=== PATIENT | male | born 1950 | race Caucasian/White ===

== ENCOUNTER → 2017-06-15 | Outpatient (CLI) | payer OTHER, BC ==
[~2017-06-15] MED LIST: ASPEC325 PO; CLB200 PO; LEVOTHYROXINE; LISI-526 PO; LRT5 PO; MULT-506 PO; OXYSR10 PO; PRLSR20 PO; SOLODYN
[2017-06-15 12:12] LABS: BASO % 0.3 %; BASO ABS # 0.02 K/uL (0-0.2); COMPLETE YES; EOS % 0.7 %; HEMATOCRIT 44.8 % (42-52); IG% 0.2 %; LYMPH % 25.9 %; LYMPH ABS # 1.55 K/uL (1.2-3.4); MEAN CELL VOLUME 86.3 fL (80-100); MEAN CORPUSCULAR HEMOGLOBIN 30.3 pg (25-34); MEAN PLATELET VOLUME 10.5 fL (7.4-10.4); MONO % 8.8 %; NEUT % 64.1 %; PLATELET COUNT 192 K/uL (130-400); RED BLOOD COUNT 5.19 M/uL (4.7-6.1); WHITE BLOOD COUNT 5.99 K/uL (4.8-10.8)
== END | disposition home or self-care (01) ==
LOC: C.LAB 10:40
PROVIDERS: ATTEND Orthopaedic Surgery
DX: Z96.652 Presence of left artificial knee joint (principal)

== ENCOUNTER → 2017-07-08 | Outpatient (CLI) | payer OTHER, BC | END | disposition home or self-care (01) | LOC: C.CPL 14:46 | PROVIDERS: ATTEND Orthopaedic Surgery Sports Medicine | DX: M23.92 Unspecified internal derangement of left knee (principal) ==

== ENCOUNTER 2017-10-05 06:17 | Inpatient (IN) | payer OTHER, BC ==
[2017-09-06 14:48] VITALS: BMI 28.0
--- NOTE | 2017-09-06 15:24 | PAT Medication Instructions ---
Service Date Sep 06, 2017. Current Home Medication List Amlodipine (Norvasc), 5 MG PO QAM Aspirin (Aspirin Ec), 81 MG PO QDD Clindamycin Phosphate (Topical (Cleocin-T), 1 APPLN TOP UD PRN for skin care Clobetasol Propionate (Clobetasol Propionate), Unknown Dose TOP UD PRN for skin care Doxycycline (Monohydrate) (Doxycycline), 1 CAP PO BID Levothyroxine Sodium (Synthroid), 112 MCG PO QAM Lisinopril (Lisinopril), 1 TAB PO QAM Lorazepam (Ativan), 0.5 MG PO UD PRN for rn Metronidazole (Topical) (Metrogel), 1 % TOP UD PRN for rosacia Multivitamin (Multivitamin), 1 TAB PO QDD Omeprazole (Prilosec), 20 MG PO QDD Pimecrolimus (Elidel), Unknown Dose TOP UD PRN for rosacia Sildenafil Citrate (Viagra), 20 MG PO UD Triamcinolone Acetonide (Topic (Triamcinolone Acet 0.025%), 1 APPLN TOP UD PRN for inside ear as needed - sorenes Medication Instructions For Your Scheduled Surgery - Hold the following medications 24 hours prior to surgery: Clindamycin Phosphate (Topical (Cleocin-T), 1 APPLN TOP UD PRN for skin care Clobetasol Propionate (Clobetasol Propionate), Unknown Dose TOP UD PRN for skin care Metronidazole (Topical) (Metrogel), 1 % TOP UD PRN for rosacia Triamcinolone Acetonide (Topic (Triamcinolone Acet 0.025%), 1 APPLN TOP UD PRN for inside ear as needed - sorenes Pimecrolimus (Elidel), Unknown Dose TOP UD PRN for rosacia - Hold the following medications the morning of surgery: Lisinopril (Lisinopril), 1 TAB PO QAM Sildenafil Citrate (Viagra), 20 MG PO UD - Take the following medications the morning of surgery with a sip of water OTHERWISE NOTHING TO EAT OR DRINK AFTER MIDNIGHT: Amlodipine (Norvasc), 5 MG PO QAM Levothyroxine Sodium (Synthroid), 112 MCG PO QAM Lorazepam (Ativan), 0.5 MG PO UD PRN Doxycycline (Monohydrate) (Doxycycline), 1 CAP PO BID - Take the following medications as scheduled the night before surgery: Aspirin (Aspirin Ec), 81 MG PO QDD Multivitamin (Multivitamin), 1 TAB PO QDD Omeprazole (Prilosec), 20 MG PO QDD Lorazepam (Ativan), 0.5 MG PO UD PRN Doxycycline (Monohydrate) (Doxycycline), 1 CAP PO BID If you have any questions please call us at [phone] or [phone] or [phone]
--- NOTE | 2017-09-06 15:50 | DIAGNOSTIC IMAGING REPORT ---
CHEST 2 VIEWS ROUTINE CLINICAL HISTORY: Preoperative chest COMPARISON STUDY: 06/08/2011 FINDINGS: The cardiac and mediastinal contours are normal. There is no evidence of focal pulmonary consolidation. There is no evidence of failure. No pleural effusions are visualized.[There is a slightly suboptimal inspiration with bronchovascular crowding at the lung bases. IMPRESSION: No active disease in the chest. Electronically signed by: Miguel A Ortega M.D. 09/06/2017 3:49 PM Dictated Date/Time: 09/06/2017 3:48 PM
[2017-09-06 16:00] LABS: BASO % 0.3 %; BASO ABS # 0.02 K/uL (0-0.2); EOS % 1.3 %; EOS ABS # 0.09 K/uL (0-0.5); HEMATOCRIT 43.1 % (42-52); HEMOGLOBIN 15.1 g/dL (14.0-18.0); IG# 0.01 K/uL (0.00-0.02); LYMPH % 31.5 %; LYMPH ABS # 2.14 K/uL (1.2-3.4); MEAN CELL VOLUME 86.5 fL (80-100); MEAN CORPUSCULAR HEMOGLOBIN 30.3 pg (25-34); MEAN PLATELET VOLUME 9.9 fL (7.4-10.4); MONO % 7.1 %; MONO ABS # 0.48 K/uL (0.11-0.59); NEUT % 59.7 %; NEUT ABS # 4.05 K/uL (1.4-6.5); PLATELET COUNT 216 K/uL (130-400); RED CELL DISTRIBUTION WIDTH CV 13.6 % (11.5-14.5); RED CELL DISTRIBUTION WIDTH SD 42.5 fL (36.4-46.3); WHITE BLOOD COUNT 6.79 K/uL (4.8-10.8)
[2017-09-06 16:12] LABS: PTT PATIENT 25.2 SECONDS (21.0-31.0)
[2017-09-06 16:48] LABS: ALBUMIN 3.7 gm/dl (3.4-5.0); BLOOD UREA NITROGEN 23 mg/dl (7-18); CALCIUM 8.3 mg/dl (8.5-10.1); CARBON DIOXIDE 26 mmol/L (21-32); CREATININE 0.77 mg/dl (0.60-1.40); GLUCOSE 103 mg/dl (70-99); POTASSIUM 3.9 mmol/L (3.5-5.1); SODIUM 140 mmol/L (136-145)
[2017-09-07 05:56] LABS: HEMOGLOBIN A1C 5.5 % (4.5-5.6)
--- NOTE | 2017-10-04 18:33 | HISTORY & PHYSICAL EXAMINATION ---
DATE OF ADMISSION: 10/05/2017 CHIEF COMPLAINT: Chronic left knee pain. HISTORY OF PRESENT ILLNESS: This is a 67-year-old male patient of Dr. Valerio who underwent a partial total knee replacement in November of 2011. Since then, he has had progressively worsening chronic knee pain for the past 1-1/2 years. Diagnostic studies have shown a patellar loosening. The patient wishes to proceed with a left knee partial knee replacement converted to a total knee arthroplasty. PAST MEDICAL HISTORY: Hypertension, hypothyroidism, acid reflux, basal cell carcinoma on the nose. SOCIAL HISTORY: Nonsmoker, nondrinker. PAST SURGICAL HISTORY: Partial knee replacement, both knees. FAMILY HISTORY: Noncontributory. REVIEW OF SYSTEMS: The patient complains of chronic left knee pain, otherwise denies any shortness of breath, chest pain, nausea, vomiting or any other joint complaints. MEDICATIONS: Omeprazole 20 mg daily, levothyroxine 112 mcg daily, lisinopril 40 mg daily, amlodipine 5 mg daily, doxycycline monohydrate 100 mg b.i.d., sildenafil 20 mg daily, aspirin 81 mg b.i.d., Ativan 0.5 mg as needed, Centrum Silver daily, Percocet as needed. ALLERGIES: No known drug allergies. PHYSICAL EXAMINATION: GENERAL: Well-developed, well-nourished 67-year-old male in no acute distress. He is alert and oriented x3 and pleasant. HEENT: Normocephalic, atraumatic. Extraocular motions are intact. Pupils are equal and reactive to light. HEART: Regular rate and rhythm, no murmurs appreciated. LUNGS: Clear. ABDOMEN: Soft and nontender, bowel sounds are present. EXTREMITIES: Left knee reveals normal incision and scar on the left knee. He has a limited range of motion of 0-120 degrees. He has a neutral alignment. He has mild swelling. He has 5/5 strength. NEUROLOGIC: Neurovascularly he is intact in his left lower extremity. 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 He has a history of hypertension, hypothyroidism and acid reflux. PLAN: The patient was advised of his diagnosis. Indications, risks, benefits, and postop course have all been reviewed. The patient wishes to proceed with a left knee partial knee replacement to conversion of a total knee replacement. Necessary consent forms, preoperative testing and clearances will be obtained.
[2017-10-05] VITALS (7 sets, daily range): BP systolic 134–158; BP diastolic 76–91; PULSE 75–88; TEMP 36.4–36.7; O2SAT 96–98; Ht 172.7 cm; Wt 83.8 kg
[~2017-10-05] VITALS: Ht 172.7 cm; Wt 83.8 kg
[~2017-10-05 06:17] MED LIST changes: +ACETAMINOPHEN 500 MG TAB PO SCH; +AMLO-110 PO; -ASPEC325 PO; +ASPI81TA28 PO; +CEFAZOLIN 2000MG IV PUSH 15 ML IV SCH; -CLB200 PO; +CLBPO15 TOP; +CLIN1LOT TOP; +CeleBREX 200 MG CAP PO SCH; +DEXAMETHASONE 4 MG TAB PO SCH; +DOXY-300 PO; +ELDCR/30 TOP; +FAMOTIDINE 20 MG TAB PO SCH; +GABAPENTIN 300 MG CAP PO SCH; +LACTATED RINGER'S 1000ML 1,000 ML IV SCH; +LACTATED RINGER'S 1000ML 500 ML IV SCH; +LEVO112T2 PO; -LEVOTHYROXINE; -LISI-526 PO; +LORA-741 PO; -LRT5 PO; +LSN40 PO; +METOCLOPRAMIDE HCL 10 MG TAB PO SCH; +METR0.7527 TOP; -OXYSR10 PO; +ROPIVACAINE 5MG/ML 30 ML 150 MG, BUPIVACAINE 0.5% MPF INJ 30 ML, EpINEphrine HCL INJ 0.... INFIL SCH; +SILD1TAB11 PO; -SOLODYN; +TRMO2580 TOP; +VANCOMYCIN IV 1,250 MG in SODIUM CHLORIDE 0.9% 250ML 250 ML IV SCH
[2017-10-05] MEDS ORDERED: BUPIVACAINE 0.25% 30 ML VIAL ONE (06:34)
[2017-10-05] MEDS ORDERED: BUPIVACAINE 0.5 % 5 MG/1 ML PF 10ML VIAL ONE (06:34)
--- NOTE | 2017-10-05 07:11 | History & Physical Bridge Note ---
H&P Re-Evaluation Bridge Note: I have examined the patient, reviewed the History & Physical and in the interval since the performance of the History & Physical I have noted the following changes of clinical significance: No changes noted
[2017-10-05] MEDS ORDERED: ORTHO JOINT ANESTHETIC ONE (07:15)
[2017-10-05] MEDS ORDERED: BACITRACIN 50000 UNIT VIAL ONE (07:16)
[2017-10-05] MEDS ORDERED: POVIDONE-IODINE OP SOLN 30 ML BTL ONE (07:16)
[2017-10-05] MEDS ORDERED: MIDAZOLAM HCL 1 MG/ML 2ML VIAL ONE (07:49)
[2017-10-05] MEDS ORDERED: LIDOCAINE HCL 2% 2 ML VIAL (20MG/ML) ONE (09:06)
[2017-10-05] MEDS ORDERED: PROPOFOL IV EMULSION 10 MG/ML 20 ML VIAL IV ONE (09:06)
[2017-10-05] MEDS ORDERED: HYDROmorphone INJ 2 MG/ML SYR/VIAL IV PRN (09:15)
[2017-10-05] MEDS ORDERED: PHENYLEPHRINE 100MCG/ML 5ML SYR IV PRN (09:15)
[2017-10-05] MEDS ORDERED: ONDANSETRON INJ 2 MG/ML 2 ML VIAL IV PRN ×2 (09:15→11:45)
[2017-10-05] MEDS ORDERED: KETOROLAC TROMETHAMINE 15 MG/ML VIAL IV. PRN (09:15)
[2017-10-05] MEDS ORDERED: EpHEDrine SULFATE INJ 50 MG/ML AMP IV PRN (09:15)
[2017-10-05] MEDS ORDERED: ATROPINE SULFATE 0.1 MG/ML 5ML SYR IV PRN (09:15)
[2017-10-05] MEDS ORDERED: KETAMINE HCL INJ 50 MG/ML 10 ML VIAL ONE (09:33)
[2017-10-05] MEDS ORDERED: SODIUM CHLORIDE 0.9% INJ 10 ML VIAL ONE (09:45)
--- NOTE | 2017-10-05 11:24 | [facility] Post Operative Brief Note ---
Immediate Operative Summary Operative Date Oct 05, 2017. Pre-Operative Diagnosis Left knee loosening patellar component status post left bicompartmental knee arthroplasty,s/p knee arthroscopy and debridement removal loose component Post-Operative Diagnosis Same as preop Procedure(s) Performed Left Partial Knee Replacement rewvision to a Left Total Knee Replacement Surgeon Dr. Valerio Rn Maternal Child Surgeon(s) Fran Quiles PA-C Estimated Blood Loss 10ml Findings Consistent with Post-Op Diagnosis Specimens Culture #1 Stat Culture Left Knee Synovial Fluid: gram stain, aerobic/anaerobic, culture and sensitivity sent at 0928 Frozen: #1 Left Knee Soft Tissue Synovium sent at 0958 A. Left Knee Explants B. Left knee bone and tissue Drains 2 hemovac Anesthesia Type Spinal MAC Complication(s) none Disposition Disposition: Recovery Room / PACU
[2017-10-05] MEDS ORDERED: CEFAZOLIN IV 2,000 MG in DEXTROSE 5% 50ML 50 ML IV SCH (11:45)
[2017-10-05] MEDS ORDERED: TAMSULOSIN HCL 0.4 MG CAP PO PRN (11:45)
[2017-10-05] MEDS ORDERED: MAGNESIUM HYDROXIDE SUSP 30 ML UDC PO PRN (11:45)
[2017-10-05] MEDS ORDERED: TRAMADOL HCL 50 MG TAB PO PRN (11:45)
[2017-10-05] MEDS ORDERED: ALUMINUM/MAGNESIUM/SIMETH (MAALOX MAX) 30 ML UDC PO PRN (11:45)
[2017-10-05] MEDS ORDERED: MoRPHine SULFATE 2 MG/ML CARP IV PRN (11:45)
[2017-10-05] MEDS ORDERED: LORAZEPAM INJ 0.5 MG in SYRINGE 0.25 ML IV PRN (12:00)
--- NOTE | 2017-10-05 12:07 | DIAGNOSTIC IMAGING REPORT ---
L KNEE 1 OR 2 VIEWS ROUTINE CLINICAL HISTORY: Left knee degenerative joint disease. Arthroplasty. COMPARISON: None FINDINGS: Alignment of the total left knee arthroplasty is anatomic. There is no fracture or unexpected radiopaque foreign body. Drains and skin shruthi are present. IMPRESSION: Expected findings following total left knee arthroplasty. Electronically signed by: Edwin Verdin M.D. 10/05/2017 12:05 PM Dictated Date/Time: 10/05/2017 12:05 PM
--- NOTE | 2017-10-05 12:27 | Anesthesiology Progress Note ---
Anesthesia Post Op Note Date & Time Oct 05, 2017 at 12:27 Vital Signs Pain Intensity: 0 Vital Signs Past 12 Hours Date Time Temp Pulse Resp B/P (MAP) Pulse Ox O2 Delivery O2 Flow Rate FiO2 10/05/17 12:20 37 75 16 137/73 96 Nasal Cannula 2 10/05/17 12:10 78 16 142/75 96 Nasal Cannula 2 10/05/17 12:00 80 16 135/82 97 Nasal Cannula 2 10/05/17 11:50 75 16 132/82 97 Oxymask 10 10/05/17 11:40 36.5 78 16 129/76 97 Oxymask 10 10/05/17 06:55 36.7 75 18 153/88 97 Room Air Notes Mental Status: alert / awake / arousable, participated in evaluation Pt Amnestic to Procedure: Yes Nausea / Vomiting: adequately controlled Pain: adequately controlled Airway Patency, RR, SpO2: stable & adequate BP & HR: stable & adequate Hydration State: stable & adequate Anesthetic Complications: no major complications apparent
[2017-10-05] MEDS: TRANEXAMIC ACID INJ 1,000 MG x 2 Bags IV SCH ×4 (13:54→13:55)
[2017-10-05] MEDS: D5W AND 1/2NSS + 20MEQ KCL 1,000 ML IV SCH ×2 (13:56→23:48)
[2017-10-05] MEDS: ACETAMINOPHEN 500 MG TAB PO SCH ×2 (13:57→21:22)
--- NOTE | 2017-10-05 15:22 | Medical Consult ---
Consultation Date of Consultation: Oct 05, 2017. Attending Physician: Chicho Valerio M.D. Reason for Consultation: medical co care History of Present Illness 67-year-old man with past medical history of hypothyroidism and hypertension. Patient had partial left knee replacement in November 2011. Started having progressive pain and diagnostic study showed patellar loosening. Patient failed outpatient conservative management and presented for a conversion of partial knee to a total knee arthroplasty Procedure went uneventful and we were consulted for medical co care Social History Smoking Status: Former Smoker Allergies Coded Allergies: No Known Allergies (Unverified , 10/05/17) Current Inpatient Medications Current Inpatient Medications Medications (Trade) Dose Ordered Sig/New Route Start Time Stop Time Status Last Admin Dose Admin Lactated Ringer's 1,000 ml @ 15 mls/hr Q24H IV 10/05/17 06:00 10/06/17 05:59 Cefazolin Sodium 15 ml @ 2.5 mls/min PREOP IV 10/05/17 06:00 10/05/17 18:00 Acetaminophen (Tylenol Tab) 1,000 mg PREOP PO 10/05/17 06:00 10/05/17 18:00 10/05/17 07:19 1,000 MG Celecoxib (CeleBREX CAP) 200 mg PREOP PO 10/05/17 06:00 10/05/17 18:00 10/05/17 07:18 200 MG Dexamethasone (Decadron Tab) 8 mg PREOP PO 10/05/17 06:00 10/05/17 18:00 10/05/17 07:18 8 MG Famotidine (Pepcid Tab) 20 mg PREOP PO 10/05/17 06:00 10/05/17 18:00 10/05/17 07:18 20 MG Gabapentin (Neurontin Cap) 300 mg PREOP PO 10/05/17 06:00 10/05/17 18:00 10/05/17 07:18 300 MG Metoclopramide HCl (Reglan Tab) 10 mg PREOP PO 10/05/17 06:00 10/05/17 18:00 10/05/17 07:19 10 MG Vancomycin HCl 1250 mg/Sodium Chloride 275 ml @ 125 mls/hr TODAY@0600 IV 10/05/17 06:00 10/05/17 18:00 10/05/17 06:51 125 MLS/HR Amlodipine Besylate (Norvasc Tab) 5 mg QAM PO 10/06/17 09:00 11/05/17 08:59 Levothyroxine Sodium (Synthroid Tab) 112 mcg DAILYBB PO 10/06/17 06:00 11/05/17 05:59 Lisinopril (Zestril Tab) 40 mg QAM PO 10/06/17 09:00 11/05/17 08:59 Morphine Sulfate (MoRPHine SULFATE INJ) 2 mg Q4HWA PRN IV 10/05/17 11:45 10/19/17 11:44 Potassium Chloride/Dextrose/ Sod Cl 1,000 ml @ 100 mls/hr Q10H IV 10/05/17 13:30 10/06/17 11:42 10/05/17 13:56 100 MLS/HR Celecoxib (CeleBREX CAP) 200 mg BID PO 10/05/17 21:00 11/04/17 20:59 Oxycodone HCl (Roxicodone Immediate Rel Tab) 1 TABLET FOR PAIN RATING... Q4H PRN PO 10/05/17 11:45 10/19/17 11:44 Acetaminophen (Tylenol Tab) 1,000 mg Q8H PO 10/05/17 14:00 11/04/17 13:59 10/05/17 13:57 1,000 MG Magnesium Hydroxide (Milk Of Magnesia Susp) 30 ml Q6H PRN PO 10/05/17 11:45 11/04/17 11:44 Senna (Senokot Tab) 17.2 mg HS PO 10/05/17 21:00 11/04/17 20:59 Docusate Sodium (coLACE CAP) 100 mg BID PO 10/05/17 21:00 11/04/17 20:59 Al Hydrox/Mg Hydrox/Simethicone (Maalox Max Susp) 15 ml Q4H PRN PO 10/05/17 11:45 11/04/17 11:44 Multivitamins (Multivitamin Tab) 1 tab QAM PO 10/06/17 09:00 11/05/17 08:59 Ondansetron HCl (Zofran Inj) 4 mg Q6H PRN IV 10/05/17 11:45 11/04/17 11:44 Ferrous Gluconate (Ferrous Gluconate Tab) 324 mg TIDM PO 10/05/17 17:45 11/04/17 17:44 Pantoprazole Sodium (Protonix Tab) 40 mg QAM PO 10/06/17 09:00 11/05/17 08:59 Tamsulosin HCl (Flomax Cap) 0.4 mg QAM PRN PO 10/05/17 11:45 11/04/17 11:44 Tramadol HCl (Ultram Tab) 1 tablet for pain rating... Q4H PRN PO 10/05/17 11:45 11/04/17 11:44 Aspirin (Ecotrin Tab) 81 mg BID PO 10/05/17 21:00 11/04/17 20:59 Lorazepam 0.5 mg/ Syringe 0.5 ml @ 0.5 mls/min Q8H PRN IV 10/05/17 12:00 11/04/17 11:59 Cefazolin Sodium 2000 mg/Syringe 15 ml @ 3.75 mls/ min Q8H IV 10/05/17 16:00 10/06/17 00:03 Review of Systems Review of system Constitutional: No fever / no chills / no sweats / no weakness / no fatigue Eyes: no blurring of vision / no eye pain / no discharge / no redness ENT: no hearing loss / no epistaxis /no swallowing problems Respiratory: no cough / no wheezing / no SOB / no hemoptysis Cardiovascular: no Chest pain / no lower extremity edema / no palpitation Abdomen: no pain / no nausea / no vomiting / no constipation Musculoskeletal: no joint pain / no muscle pain / no joint swelling Genitourinary: no dysuria / no incontinence / no urinary retention Neurologic: no focal weakness / no numbness/tingling / no ataxia Psychiatric: no depression symptoms / no anxiety / no insomnia Endocrine: no excessive thirst / no excessive urination Hematologic: no abnormal bleeding / no bruising / no LN swelling Skin: No rash / no pallor Physical Exam Date Time Temp Pulse Resp B/P (MAP) Pulse Ox O2 Delivery O2 Flow Rate FiO2 10/05/17 14:40 85 16 137/84 (101) 96 Nasal Cannula 2.0 10/05/17 13:40 36.4 87 16 149/91 (110) 97 Nasal Cannula 2.0 10/05/17 13:10 36.5 88 16 158/90 (112) 98 Nasal Cannula 2.0 10/05/17 12:40 96 Nasal Cannula 2.0 10/05/17 12:40 96 Nasal Cannula 2.0 10/05/17 12:20 37 75 16 137/73 96 Nasal Cannula 2 10/05/17 12:10 78 16 142/75 96 Nasal Cannula 2 10/05/17 12:00 80 16 135/82 97 Nasal Cannula 2 10/05/17 11:50 75 16 132/82 97 Oxymask 10 10/05/17 11:40 36.5 78 16 129/76 97 Oxymask 10 10/05/17 06:55 36.7 75 18 153/88 97 Room Air Potential is good with them as a negative Physical examination General patient appears to be comfortable, not in acute distress HEENT: Atraumatic , normocephalic /no jaundice /no pallor /anicteric /no dry mucous membrane /normal external ear inspection Neck: Supple /no swelling /central trach Heart: S1/S2 normal/regular rate and rhythm/no gallop /no rub /no murmur Lungs: Clear to auscultation bilaterally/normal chest with expansion/no rhonchi/ no rales/no wheezing/no use of accessory muscles of respiration Abdomen: Soft/nontender/no guarding/no rebound/no organomegaly/no pulsatile mass Musculoskeletal: No swelling/no edema/no tenderness/normal range of motion, left knee is wrapped, but he is able to move his toes and sensation intact Neuro exam: Awake alert oriented 3/cranial nerves II through XII appear to be intact/sensation intact/moves all extremities/no abnormal movements Psychiatric evaluation: No depressed mood/normal affect Skin: No rash on exposed skin area/no erythema Extremity: Normal pulse/no pitting edema/no clubbing or cyanosis Endocrine/lymphatic: No obvious lymphadenopathy /no lymphedema Laboratory Results Last 24 Hours Test 10/05/17 15:15 Assessment & Plan Assessment: severe osteoarthritis with loosening of patella and partial knee replacement. Patient presented to the hospital for an elective orthopedic procedure conversion of partial knee to total knee arthroplasty Procedure went uneventful Also has rosacea that he takes doxycycline for it Hypertension Hypothyroidism Plan Status post orthopedic procedure, went uneventful full Patient tolerated procedure well with minimal blood loss Appears to be stable We will restart his doxycycline for rosacea Continue outpatient medications, including blood pressure medication and Synthroid Follow-up labs Ensure adequate oral/parenteral intake Pain management Physical therapy initiation as per primary orthopedic team DVT prophylaxis as per the choice of primary orthopedic team
[2017-10-05] MEDS: CEFAZOLIN IV 2,000 MG in SYRINGE 0 ML IV SCH (15:39)
[2017-10-05 16:15] LABS: BASO % 0.1 %; BASO ABS # 0.01 K/uL (0-0.2); HEMATOCRIT 42.3 % (42-52); HEMOGLOBIN 15.1 g/dL (14.0-18.0); IG# 0.02 K/uL (0.00-0.02); LYMPH % 7.6 %; LYMPH ABS # 0.64 K/uL (1.2-3.4); MEAN CELL VOLUME 85.3 fL (80-100); MEAN CORPUSCULAR HEMOGLOBIN 30.4 pg (25-34); MEAN CORPUSCULAR HGB CONC 35.7 g/dl (32-36); MEAN PLATELET VOLUME 10.2 fL (7.4-10.4); NEUT % 92.1 %; PLATELET COUNT 182 K/uL (130-400); RED CELL DISTRIBUTION WIDTH CV 13.1 % (11.5-14.5); RED CELL DISTRIBUTION WIDTH SD 40.7 fL (36.4-46.3); WHITE BLOOD COUNT 8.47 K/uL (4.8-10.8)
[2017-10-05 16:33] LABS: CREATININE 1.37 mg/dl (0.60-1.40)
[2017-10-05 16:34] LABS: ALBUMIN 3.5 gm/dl (3.4-5.0); CALCIUM 8.1 mg/dl (8.5-10.1)
[2017-10-05] MEDS: FERROUS GLUCONATE 324 MG TAB PO SCH (17:33)
[2017-10-05] MEDS: ASPIRIN 81 MG ECTAB PO SCH (20:34)
[2017-10-05] MEDS: CeleBREX 200 MG CAP PO SCH (20:34)
[2017-10-05] MEDS: DOCUSATE SODIUM 100 MG CAP PO SCH (20:35)
[2017-10-05] MEDS: DOXYCYCLINE HYCLATE 100 MG CAP PO SCH (20:35)
[2017-10-05] MEDS: SENNA 8.6 MG TAB PO SCH (21:21)
[2017-10-06] MEDS: CEFAZOLIN IV 2,000 MG in SYRINGE 0 ML IV SCH (00:04)
[2017-10-06 03:50] VITALS: BP 135/81; PULSE 83; TEMP 36.8; O2SAT 97
[2017-10-06] MEDS: ACETAMINOPHEN 500 MG TAB PO SCH ×3 (05:41→21:29)
[2017-10-06] MEDS: LEVOTHYROXINE 112 MCG TAB PO SCH (05:41)
[2017-10-06 06:42] LABS: HEMATOCRIT 35.7 % (42-52); HEMOGLOBIN 12.4 g/dL (14.0-18.0); IG# 0.03 K/uL (0.00-0.02); LYMPH % 7.8 %; MEAN CELL VOLUME 85.2 fL (80-100); MEAN CORPUSCULAR HEMOGLOBIN 29.6 pg (25-34); MEAN CORPUSCULAR HGB CONC 34.7 g/dl (32-36); MEAN PLATELET VOLUME 9.7 fL (7.4-10.4); MONO % 7.1 %; MONO ABS # 1.09 K/uL (0.11-0.59); NEUT % 84.9 %; NEUT ABS # 13.06 K/uL (1.4-6.5); PLATELET COUNT 177 K/uL (130-400); RED CELL DISTRIBUTION WIDTH CV 13.3 % (11.5-14.5); RED CELL DISTRIBUTION WIDTH SD 41.2 fL (36.4-46.3); WHITE BLOOD COUNT 15.38 K/uL (4.8-10.8)
[2017-10-06 07:19] LABS: ALBUMIN 3.1 gm/dl (3.4-5.0); CALCIUM 8.2 mg/dl (8.5-10.1); CREATININE 0.94 mg/dl (0.60-1.40); POTASSIUM 3.8 mmol/L (3.5-5.1)
[2017-10-06 07:43] VITALS: BP 147/77; PULSE 77; TEMP 36.6; O2SAT 96
--- NOTE | 2017-10-06 08:11 | Anesthesiology Progress Note ---
Anesthesia Post Op Note Date & Time Oct 06, 2017 at 08:11 Vital Signs Pain Intensity: 0.0 Vital Signs Past 12 Hours Date Time Temp Pulse Resp B/P (MAP) Pulse Ox O2 Delivery O2 Flow Rate FiO2 10/06/17 07:43 36.6 77 16 147/77 (100) 96 Room Air 10/06/17 03:50 36.8 83 16 135/81 (99) 97 Room Air 10/05/17 23:45 Room Air 10/05/17 23:20 36.6 77 16 143/84 (103) 96 Room Air Notes Mental Status: alert / awake / arousable, participated in evaluation Pt Amnestic to Procedure: Yes Nausea / Vomiting: adequately controlled Pain: adequately controlled Airway Patency, RR, SpO2: stable & adequate BP & HR: stable & adequate Hydration State: stable & adequate Neuraxial Anesthesia: was administered, sensory block resolved Anesthetic Complications: no major complications apparent
[2017-10-06] MEDS: CeleBREX 200 MG CAP PO SCH ×2 (08:26→21:28)
[2017-10-06] MEDS: FERROUS GLUCONATE 324 MG TAB PO SCH ×3 (08:26→18:04)
[2017-10-06] MEDS: MULTIVITAMIN TAB PO SCH (08:27)
[2017-10-06] MEDS: ASPIRIN 81 MG ECTAB PO SCH ×2 (08:27→21:28)
[2017-10-06] MEDS: DOCUSATE SODIUM 100 MG CAP PO SCH ×2 (08:27→21:27)
[2017-10-06] MEDS: PANTOprazole SOD 40 MG TAB PO SCH (08:27)
[2017-10-06] MEDS: DOXYCYCLINE HYCLATE 100 MG CAP PO SCH ×2 (08:28→21:27)
[2017-10-06] MEDS: AMLODIPINE BESYLATE 5 MG TAB PO SCH (08:28)
--- NOTE | 2017-10-06 08:28 | Orthopedic Progress Note ---
Orthopedic Progress Note Date of Service Oct 06, 2017. Subjective Post OP Day: 1 Reports: feeling well, pain controlled w PO medications, Denies: complaints, chest pain, SOB, nausea / vomiting, light headedness, calf pain Objective calves soft nontender, N/V intact, capillary refill less than 2 sec., dressing C /D/I, A&O x3, toes mobile Date Time Temp Pulse Resp B/P (MAP) Pulse Ox O2 Delivery O2 Flow Rate FiO2 10/06/17 07:43 36.6 77 16 147/77 (100) 96 Room Air 10/06/17 03:50 36.8 83 16 135/81 (99) 97 Room Air 10/05/17 23:45 Room Air 10/05/17 23:20 36.6 77 16 143/84 (103) 96 Room Air 10/05/17 15:45 36.7 87 16 134/76 (95) 96 Nasal Cannula 2.0 10/05/17 15:15 Room Air 10/05/17 14:40 85 16 137/84 (101) 96 Nasal Cannula 2.0 10/05/17 13:40 36.4 87 16 149/91 (110) 97 Nasal Cannula 2.0 10/05/17 13:10 36.5 88 16 158/90 (112) 98 Nasal Cannula 2.0 10/05/17 12:40 96 Nasal Cannula 2.0 10/05/17 12:40 96 Nasal Cannula 2.0 10/05/17 12:20 37 75 16 137/73 96 Nasal Cannula 2 10/05/17 12:10 78 16 142/75 96 Nasal Cannula 2 10/05/17 12:00 80 16 135/82 97 Nasal Cannula 2 10/05/17 11:50 75 16 132/82 97 Oxymask 10 10/05/17 11:40 36.5 78 16 129/76 97 Oxymask 10 Laboratory Results 24 Hours: Test 10/05/17 15:22 10/06/17 06:15 White Blood Count 8.47 K/uL 15.38 K/uL Red Blood Count 4.96 M/uL 4.19 M/uL Hemoglobin 15.1 g/dL 12.4 g/dL Hematocrit 42.3 % 35.7 % Mean Corpuscular Volume 85.3 fL 85.2 fL Mean Corpuscular Hemoglobin 30.4 pg 29.6 pg Mean Corpuscular Hemoglobin Concent 35.7 g/dl 34.7 g/dl Platelet Count 182 K/uL 177 K/uL Mean Platelet Volume 10.2 fL 9.7 fL Neutrophils (%) (Auto) 92.1 % 84.9 % Lymphocytes (%) (Auto) 7.6 % 7.8 % Monocytes (%) (Auto) 0.0 % 7.1 % Eosinophils (%) (Auto) 0.0 % 0.0 % Basophils (%) (Auto) 0.1 % 0.0 % Neutrophils # (Auto) 7.80 K/uL 13.06 K/uL Lymphocytes # (Auto) 0.64 K/uL 1.20 K/uL Monocytes # (Auto) 0.00 K/uL 1.09 K/uL Eosinophils # (Auto) 0.00 K/uL 0.00 K/uL Basophils # (Auto) 0.01 K/uL 0.00 K/uL Assessment & Plan Assessment: POD #1, Left knee revision partial to TKA Plan: PT/ OT DVT proph- ASA D/C planning- Home w OPPT Appreciate medicine input. Inhouse Planning Pain Management: Celebrex, Ultram, Morphine, PO Tylenol, Oxy IR DVT Prophylaxis: TEDs, SCDs, ASA Discharge Planning Discharge Planning: home with oppt Pain Management: Celebrex, PO Tylenol, Oxy IR DVT Prophylaxis: TEDs, ASA Therapy: Physical Therapy, Occupational Therapy
[2017-10-06] MEDS: LISINOPRIL 40 MG TAB PO SCH (08:29)
--- NOTE | 2017-10-06 08:30 | Discharge Instructions ---
Discharge Instructions Date of Service Oct 06, 2017. Admission Reason for Admission: Left Knee Degenerative Joint Disease Discharge Discharge Diagnosis / Problem: Left knee revision partial to TKA Discharge Goals Goal(s): Improve function Activity Recommendations Activity Limitations: as noted below . Instructions / Follow-Up Instructions / Follow-Up ACTIVITY RECOMMENDATIONS: SELF CARE INSTRUCTIONS AFTER TOTAL KNEE REPLACEMENT A. You may need to continue a physical therapy program after discharge from the hospital. There are several options available to you. Your doctor will assist you in selecting the best one for you. 1. An out-patient facility 2 to 3 times a week for therapy or home therapy. 2. Continue working on all exercises taught to you in the hospital. Your goals should be to increase bending of your knee to 90 degrees and beyond and to fully straighten your knee. B. You may progress at your own pace from walking with a walker or crutches to a cane; then to no assistive devices. C. Make walking a part of your daily routine. Be up as much as comfortable with rest periods throughout the day. Rest with leg elevation is very important. Use the ice wrap frequently for the first 3-4 weeks. D. There are no restrictions on activities. You may ride in a car, shop, participate in manager coding and all social activities. E. Wear the long elastic stockings (EARLENE hose) 20 hours a day for 2 weeks after surgery. They can be removed several times a day for laundering and for a bath. F. You may shower, no tub baths until cleared by your doctor. SPECIAL CARE INSTRUCTIONS: VERY IMPORTANT TO READ AND REVIEW A. There are a few signs you need to watch for after you are home. Call [facility] if you notice any of the followin. Increased severe knee pain. Some pain is expected especially when you exercise. 2. Increased swelling in your leg or knee; pain or swelling of the calf muscle in either lower leg. 3. Any fluid drainage from the incision. 4. Shortness of breath or chest pain. B. Please call [facility] at if you have any concerns or questions about your operation or recovery. The doctor or his nurse will return your call promptly. C. You must take antibiotics before dental work, bladder, bowel or other surgery. Your doctor will provide you with a permanent care to carry describing this precaution. IMPORTANT: * REMEMBER TO TAKE ASPIRIN, 81 MG, TWICE DAILY FOR 4 WEEKS UNLESS OTHERWISE DIRECTED. THIS IS YOUR BLOOD THINNER. * HIGH RISK PATIENTS MAY BE PRESCRIBED A STRONGER BLOOD THINNER. THIS WILL BE PROVIDED AT DISCHARGE. * CALL IF INCREASED PAIN, REDNESS, DRAINAGE OR FEVER GREATER THAT 101. * WEAR EARLENE HOSE 20 HOURS PER DAY FOR 2 WEEKS. * YOU MAY HAVE A LARGE BAND-AID LIKE DRESSING (SILVERON). THIS WILL REMAIN ON YOUR INCISION FOR 7 DAYS, THEN CAN BE REMOVED. IF INCISION IS LEAKING THROUGH DRESSING, CALL THE OFFICE . FOLLOW UP VISIT: If appointment is not already scheduled: Please call [facility] to make a follow-up appointment for 2 weeks after your surgery at . Current Hospital Diet Patient's current hospital diet: Regular Diet Discharge Diet Recommended Diet: Regular Diet Procedures Procedures Performed: Left Partial Knee Replacement rewvision to a Left Total Knee Replacement Pending Studies Studies pending at discharge: no Laboratory Results Hemoglobin A1c Test 09/06/17 15:33 Range/Units Estimated Average Glucose 111 mg/dl Hemoglobin A1c 5.5 4.5-5.6 % Medical Emergencies . Who to Call and When: Medical Emergencies: If at any time you feel your situation is an emergency, please call 351 immediately. . Non-Emergent Contact Non-Emergency issues call your: Primary Care Provider . "Provider Documentation" section prepared by Teodoro Velasco. . VTE Core Measure Inpt VTE Proph given/why not?: Other Anticoagulation (asa), T.E.D. Stockings, SCD's [place] Drug Monitoring Program Search Results: patient reviewed within database, no issues identified
[2017-10-06] MEDS: OXYCODONE HCL IR 5 MG TAB (IMMEDIATE RELEASE) PO PRN ×4 (08:33→22:04)
[2017-10-06] MEDS: D5W AND 1/2NSS + 20MEQ KCL 1,000 ML IV SCH (09:30)
--- NOTE | 2017-10-06 10:53 | Progress Note ---
Subjective Date of Service: Oct 06, 2017. Subjective Pt evaluation today including: conversation w/ patient Patient reports feeling well. Patient reports having 5-6/10 pain in his left knee. Patient denies any other symptoms. ROS is negative. Review of Systems Constitutional: No fever, No chills ENT: No hearing loss Cardiac: No chest pain Abdomen: No pain Musculoskeletal: + joint pain Endo: No fatigue Skin: + rash, No itch All Other Systems: Reviewed and Negative Medications Current Inpatient Medications Medications (Trade) Dose Ordered Sig/New Route Start Time Stop Time Status Last Admin Dose Admin Amlodipine Besylate (Norvasc Tab) 5 mg QAM PO 10/06/17 09:00 11/05/17 08:59 10/06/17 08:28 5 MG Levothyroxine Sodium (Synthroid Tab) 112 mcg DAILYBB PO 10/06/17 06:00 11/05/17 05:59 10/06/17 05:41 112 MCG Lisinopril (Zestril Tab) 40 mg QAM PO 10/06/17 09:00 11/05/17 08:59 10/06/17 08:29 40 MG Morphine Sulfate (MoRPHine SULFATE INJ) 2 mg Q4HWA PRN IV 10/05/17 11:45 10/19/17 11:44 Potassium Chloride/Dextrose/ Sod Cl 1,000 ml @ 100 mls/hr Q10H IV 10/05/17 13:30 10/06/17 11:42 10/05/17 23:48 100 MLS/HR Celecoxib (CeleBREX CAP) 200 mg BID PO 10/05/17 21:00 11/04/17 20:59 10/06/17 08:26 200 MG Oxycodone HCl (Roxicodone Immediate Rel Tab) 1 TABLET FOR PAIN RATING... Q4H PRN PO 10/05/17 11:45 10/19/17 11:44 10/06/17 08:33 5 MG Acetaminophen (Tylenol Tab) 1,000 mg Q8H PO 10/05/17 14:00 11/04/17 13:59 10/06/17 05:41 1,000 MG Magnesium Hydroxide (Milk Of Magnesia Susp) 30 ml Q6H PRN PO 10/05/17 11:45 11/04/17 11:44 Senna (Senokot Tab) 17.2 mg HS PO 10/05/17 21:00 11/04/17 20:59 10/05/17 21:21 17.2 MG Docusate Sodium (coLACE CAP) 100 mg BID PO 10/05/17 21:00 11/04/17 20:59 10/06/17 08:27 100 MG Al Hydrox/Mg Hydrox/Simethicone (Maalox Max Susp) 15 ml Q4H PRN PO 10/05/17 11:45 11/04/17 11:44 Multivitamins (Multivitamin Tab) 1 tab QAM PO 10/06/17 09:00 11/05/17 08:59 10/06/17 08:27 1 TAB Ondansetron HCl (Zofran Inj) 4 mg Q6H PRN IV 10/05/17 11:45 11/04/17 11:44 Ferrous Gluconate (Ferrous Gluconate Tab) 324 mg TIDM PO 10/05/17 17:45 11/04/17 17:44 10/06/17 08:26 324 MG Pantoprazole Sodium (Protonix Tab) 40 mg QAM PO 10/06/17 09:00 11/05/17 08:59 10/06/17 08:27 40 MG Tamsulosin HCl (Flomax Cap) 0.4 mg QAM PRN PO 10/05/17 11:45 11/04/17 11:44 Tramadol HCl (Ultram Tab) 1 tablet for pain rating... Q4H PRN PO 10/05/17 11:45 11/04/17 11:44 Aspirin (Ecotrin Tab) 81 mg BID PO 10/05/17 21:00 11/04/17 20:59 10/06/17 08:27 81 MG Lorazepam 0.5 mg/ Syringe 0.5 ml @ 0.5 mls/min Q8H PRN IV 10/05/17 12:00 11/04/17 11:59 Doxycycline Hyclate (Vibramycin Cap) 100 mg BID PO 10/05/17 21:00 11/04/17 20:59 10/06/17 08:28 100 MG Objective Vital Signs Date Time Temp Pulse Resp B/P (MAP) Pulse Ox O2 Delivery O2 Flow Rate FiO2 10/06/17 07:43 36.6 77 16 147/77 (100) 96 Room Air 10/06/17 07:40 Room Air 10/06/17 03:50 36.8 83 16 135/81 (99) 97 Room Air 10/05/17 23:45 Room Air 10/05/17 23:20 36.6 77 16 143/84 (103) 96 Room Air 10/05/17 15:45 36.7 87 16 134/76 (95) 96 Nasal Cannula 2.0 10/05/17 15:15 Room Air 10/05/17 14:40 85 16 137/84 (101) 96 Nasal Cannula 2.0 10/05/17 13:40 36.4 87 16 149/91 (110) 97 Nasal Cannula 2.0 10/05/17 13:10 36.5 88 16 158/90 (112) 98 Nasal Cannula 2.0 10/05/17 12:40 96 Nasal Cannula 2.0 10/05/17 12:40 96 Nasal Cannula 2.0 10/05/17 12:20 37 75 16 137/73 96 Nasal Cannula 2 10/05/17 12:10 78 16 142/75 96 Nasal Cannula 2 10/05/17 12:00 80 16 135/82 97 Nasal Cannula 2 10/05/17 11:50 75 16 132/82 97 Oxymask 10 10/05/17 11:40 36.5 78 16 129/76 97 Oxymask 10 Physical Exam General Appearance: WD/WN, no apparent distress Eyes: normal inspection ENT: normal ENT inspection Neck: supple, no adenopathy Respiratory/Chest: chest non-tender, lungs clear, normal breath sounds, no respiratory distress Cardiovascular: regular rate, rhythm, no edema Abdomen: non tender, soft Extremities: normal range of motion, non-tender Neurologic/Psychiatric: alert, oriented x 3 Skin: normal color, warm/dry Laboratory Results Last 24 Hours Test 10/05/17 15:22 10/06/17 06:15 White Blood Count 8.47 K/uL 15.38 K/uL Red Blood Count 4.96 M/uL 4.19 M/uL Hemoglobin 15.1 g/dL 12.4 g/dL Hematocrit 42.3 % 35.7 % Mean Corpuscular Volume 85.3 fL 85.2 fL Mean Corpuscular Hemoglobin 30.4 pg 29.6 pg Mean Corpuscular Hemoglobin Concent 35.7 g/dl 34.7 g/dl Platelet Count 182 K/uL 177 K/uL Mean Platelet Volume 10.2 fL 9.7 fL Neutrophils (%) (Auto) 92.1 % 84.9 % Lymphocytes (%) (Auto) 7.6 % 7.8 % Monocytes (%) (Auto) 0.0 % 7.1 % Eosinophils (%) (Auto) 0.0 % 0.0 % Basophils (%) (Auto) 0.1 % 0.0 % Neutrophils # (Auto) 7.80 K/uL 13.06 K/uL Lymphocytes # (Auto) 0.64 K/uL 1.20 K/uL Monocytes # (Auto) 0.00 K/uL 1.09 K/uL Eosinophils # (Auto) 0.00 K/uL 0.00 K/uL Basophils # (Auto) 0.01 K/uL 0.00 K/uL RDW Standard Deviation 40.7 fL 41.2 fL RDW Coefficient of Variation 13.1 % 13.3 % Immature Granulocyte % (Auto) 0.2 % 0.2 % Immature Granulocyte # (Auto) 0.02 K/uL 0.03 K/uL Sodium Level 138 mmol/L 139 mmol/L Potassium Level 4.0 mmol/L 3.8 mmol/L Chloride Level 106 mmol/L 108 mmol/L Carbon Dioxide Level 23 mmol/L 23 mmol/L Anion Gap 9.0 mmol/L 8.0 mmol/L Blood Urea Nitrogen 21 mg/dl 18 mg/dl Creatinine 1.37 mg/dl 0.94 mg/dl Est Creatinine Clear Calc Drug Dose 53.7 ml/min 78.2 ml/min Estimated GFR () 60.6 95.5 Estimated GFR (Non- 52.3 82.4 BUN/Creatinine Ratio 15.1 19.1 Random Glucose 222 mg/dl 128 mg/dl Calcium Level 8.1 mg/dl 8.2 mg/dl Magnesium Level 2.0 mg/dl 2.1 mg/dl Total Bilirubin 0.5 mg/dl 0.5 mg/dl Aspartate Amino Transf (AST/SGOT) 19 U/L 18 U/L Alanine Aminotransferase (ALT/SGPT) 27 U/L 21 U/L Alkaline Phosphatase 108 U/L 87 U/L Total Protein 7.0 gm/dl 6.0 gm/dl Albumin 3.5 gm/dl 3.1 gm/dl Globulin 3.5 gm/dl 2.9 gm/dl Albumin/Globulin Ratio 1.0 1.1 Assessment and Plan Assessment: severe osteoarthritis with loosening of patella and partial knee replacement. Patient presented to the hospital for an elective orthopedic procedure conversion of partial knee to total knee arthroplasty Procedure went uneventful Hypertension BP was mildly elevated today. Likely secondary to withholding lisniopril on day of surgery. Will continue same management. will not change BP meds during hospitalization. Rosacea will continue doxycycline Hypothyroidism will continue home meds Disp: Pain management Physical therapy initiation as per primary orthopedic team DVT prophylaxis as per the choice of primary orthopedic team Will sign off case as patient is stable. If any events occur overnight, please do not hesitate to call us.
[2017-10-06 11:30] VITALS: BP 145/75; PULSE 86; TEMP 36.6; O2SAT 99
[2017-10-06 15:05] VITALS: BP 120/65; PULSE 81; TEMP 36.6; O2SAT 97
[2017-10-06] MEDS: SENNA 8.6 MG TAB PO SCH (21:28)
[2017-10-06 22:53] VITALS: BP 150/72; PULSE 93; TEMP 36.9; O2SAT 97
[2017-10-07] MEDS: LEVOTHYROXINE 112 MCG TAB PO SCH (05:59)
[2017-10-07] MEDS: ACETAMINOPHEN 500 MG TAB PO SCH (05:59)
[2017-10-07 06:55] VITALS: BP 191/91; PULSE 102; TEMP 37.2; O2SAT 96
[2017-10-07 07:19] VITALS: BP 164/82; PULSE 96; TEMP 36.8; O2SAT 96
[2017-10-07] MEDS: DOCUSATE SODIUM 100 MG CAP PO SCH (07:21)
[2017-10-07] MEDS: AMLODIPINE BESYLATE 5 MG TAB PO SCH (07:21)
[2017-10-07] MEDS: ASPIRIN 81 MG ECTAB PO SCH (07:21)
[2017-10-07] MEDS: CeleBREX 200 MG CAP PO SCH (07:21)
[2017-10-07] MEDS: PANTOprazole SOD 40 MG TAB PO SCH (07:21)
[2017-10-07] MEDS: LISINOPRIL 40 MG TAB PO SCH (07:21)
[2017-10-07] MEDS: FERROUS GLUCONATE 324 MG TAB PO SCH (07:21)
[2017-10-07] MEDS: MULTIVITAMIN TAB PO SCH (07:21)
[2017-10-07] MEDS: DOXYCYCLINE HYCLATE 100 MG CAP PO SCH (07:21)
[2017-10-07] MEDS: OXYCODONE HCL IR 5 MG TAB (IMMEDIATE RELEASE) PO PRN (07:27)
[2017-10-07 07:41] VITALS: BP 138/86; PULSE 78; TEMP 36.8; O2SAT 96
[2017-10-07 08:02] VITALS: BP 138/86; PULSE 78; TEMP 36.8; O2SAT 96
[2017-10-07 08:10] VITALS: O2SAT 96
--- NOTE | 2017-10-07 08:23 | Orthopedic Progress Note ---
Orthopedic Progress Note Date of Service Oct 07, 2017. Subjective Post OP Day: 2 Reports: feeling well, Denies: complaints Objective calves soft nontender, N/V intact, dressing C/D/I, A&O x3, toes mobile Date Time Temp Pulse Resp B/P (MAP) Pulse Ox O2 Delivery O2 Flow Rate FiO2 10/07/17 08:10 96 Room Air 10/07/17 08:02 36.8 78 18 96 Room Air 10/07/17 08:01 Room Air 10/07/17 07:41 36.8 78 18 138/86 (103) 96 Room Air 10/07/17 07:19 36.8 96 18 164/82 (109) 96 Room Air 10/07/17 06:55 37.2 102 20 191/91 (124) 96 Room Air 10/06/17 23:20 Room Air 10/06/17 22:53 36.9 93 14 150/72 (98) 97 Room Air 10/06/17 15:05 36.6 81 18 120/65 (83) 97 Room Air 10/06/17 15:00 Room Air 10/06/17 11:30 36.6 86 16 145/75 (98) 99 Room Air Assessment & Plan Assessment: POD #2, Left knee revision partial to TKA Plan: PT/ OT DVT proph- ASA D/C planning- Home w OPPT Appreciate medicine input. Plan for discharge today after AM PT Inhouse Planning Pain Management: Celebrex, Ultram, Morphine, PO Tylenol, Oxy IR DVT Prophylaxis: TEDs, SCDs, ASA Discharge Planning Discharge Planning: home with oppt Pain Management: Celebrex, PO Tylenol, Oxy IR DVT Prophylaxis: TEDs, ASA Therapy: Physical Therapy
[2017-10-07] MEDS ORDERED: SENN-61 PO (08:25)
[2017-10-07] MEDS ORDERED: CLB200 PO (08:25)
[2017-10-07] MEDS ORDERED: ACET-24 PO (08:25)
[2017-10-07] MEDS ORDERED: ASPI81TA28 PO (08:25)
[2017-10-07] MEDS ORDERED: RXC5 PO (08:25)
--- NOTE | 2017-10-10 12:54 | Discharge Summary ---
Orthopedic Discharge Summary Admission Date/Reason Oct 05, 2017 at 07:06 Left Knee Degenerative Joint Disease. Discharge Date/Disposition Oct 07, 2017 Home Diagnosis Principal Diagnosis: Left knee DJD Secondary Diagnoses/Problems: Hypertension, hypothyroidism, acid reflux, basal cell carcinoma on the nose. Procedure(s) Performed Left Partial Knee Replacement rewvision to a Left Total Knee Replacement Consultations Dr Patrica North Medication Reconciliation New Medications: Acetaminophen (Sb Non-Aspirin Extra Stre) 500 Mg Tab 1000 MG PO Q8H for 21 Days, #126 TAB Celecoxib (Celebrex) 200 Mg Cap 200 MG PO BID, #60 CAP Oxycodone HCl (Oxycodone HCl) 5 Mg Tab 5-10 MG PO Q4H PRN for Pain, #60 TAB Senna (Senokot) 8.6 Mg Tab 17.2 MG PO HS, #30 TAB Hold for loose stools Changed Medications: Aspirin (Aspirin Ec) 81 Mg Tab 81 MG PO BID for 30 Days (Changed from: QDD) After 30 days, stop taking the tablet twice daily and resume your once daily dose Continued Medications: Amlodipine (Norvasc) 5 Mg Tab 5 MG PO QAM, TAB Clindamycin Phosphate (Topical (Cleocin-T) 1 % Lot 1 APPLN TOP UD PRN for skin care for 30 Days, #60 ML 3 Refills Clobetasol Propionate (Clobetasol Propionate) Unknown Strength Oint Unknown Dose TOP UD PRN for skin care for 30 Days, #60 GM 2 Refills Doxycycline (Monohydrate) (Doxycycline) 100 Mg Cap 1 CAP PO BID Levothyroxine Sodium (Synthroid) 112 Mcg Tab 112 MCG PO QAM, TAB Lisinopril (Lisinopril) 40 Mg Tab 1 TAB PO QAM Lorazepam (Ativan) 0.5 Mg Tab 0.5 MG PO UD PRN for rn, TAB Metronidazole (Topical) (Metrogel) 0.75 % Gel 1 % TOP UD PRN for rosacia Multivitamin (Multivitamin) Tab 1 TAB PO QDD, 0 Refills Omeprazole (Prilosec) 20 Mg Capcr 20 MG PO QDD, 0 Refills Pimecrolimus (Elidel) Unknown Strength Cr Unknown Dose TOP UD PRN for rosacia for 30 Days, #100 GM pt med list reads 1% Sildenafil Citrate (Viagra) 25 Mg Tab 20 MG PO UD, TAB Triamcinolone Acetonide (Topic (Triamcinolone Acet 0.025%) 0.025 % Oin 1 APPLN TOP UD PRN for inside ear as needed - sorenes, #15 GM 1 Refill pt med list reads 0.1% Admission Physical Exam As per Admitting History & Physical. Hospital Course The Patient had an uneventful hospital course. Labs remained stable- lowest hemoglobin recorded: [12.4]. Pain controlled on oral medications. Participated in PT with ambulation distance of 725 feet. ROM of operative knee reached 100 degrees. Drainage output totaled 620 cc prior to discontinuation. Patient did have a reported bowel movement. Incision remained clean/dry/intact. DVT prophylaxis with Aspirin EC 81mg BID x 30 days/A[place]ilino stockings. Patient discharged home with Outpatient PT in stable condition. Please refer to daily progress notes for further details. Discharge Instructions Please refer to the electronic Patient Visit Report (Discharge Instructions) for additional information.
--- NOTE | 2017-10-28 09:49 | OPERATIVE REPORT ---
DATE OF OPERATION: 10/05/2017 INDICATION FOR PROCEDURE: The patient is a 67-year-old male with chronic left knee pain. He has a history of a [employer] bicompartmental knee replacement. He is having clunking in his knee and pain. He had a diagnostic arthroscopy which revealed a loose patellar component which the patella polyethylene was removed and a synovectomy performed. Appropriate time was left for things to heal and now patient presents for revision of a bicompartmental knee replacement to a total knee replacement. PREOPERATIVE DIAGNOSIS: Left knee loosening patellar component status post left bicompartmental knee arthroplasty, status post arthroscopy and debridement, removal of loose component. POSTOPERATIVE DIAGNOSIS: Same. PROCEDURE: Revision of a left bicompartmental partial knee replacement to a total knee replacement 3 components. SURGEON: Chicho Valerio MD. GOLD LEAF GILDER: DALTON Epperson. ANESTHESIA: Spinal, MAC. ESTIMATED BLOOD LOSS: 10 mL. SPECIMENS: Stat culture, Gram stain and frozen sections. OPERATIVE PROCEDURE: The patient taken to the operating room, anesthetized under anesthesia as dictated. Pneumatic tourniquet was placed in the left upper thigh. Left lower extremity was prepped and draped in sterile fashion. His knee had benign healed incisions. He had crepitation of patellofemoral joint. His left lower extremity was prepped and draped with ChloraPrep in usual sterile fashion. Leg was elevated, exsanguinated with Esmarch bandage. Pneumatic tourniquet was raised to 300 mmHg. His previous anterior scar was used for this incision, extended slightly proximally for exposure. The skin flaps were elevated. An incision was made through the medial retinaculum up into the mid third of the quadriceps tendon and down to the medial tibial tubercle. Intraarticular findings demonstrated he had a flattened patella with absent polyethylene from prior removal. He had some mild synovitis with no evidence of any pus or any signs of infection. The tibial and femoral components were still well fixed. Did have some arthritic changes in his lateral compartment. The culture was obtained. Attention was first taken to exposure. Some of the scarred infrapatellar fat pad was resected. We did some minor capsular releases around the proximal, medial and lateral tibial plateau to expose the joint. A subperiosteal peel lateral release was performed around the patella. Electrocautery synovectomy was performed removing the scarred synovium tissue. Attention was first taken to the femur. We used the Ultra-Drive to melt the cement. Then, the femoral component was disimpacted from the femur when it was adequately loosened. There was no major bone loss, so we could proceed with a primary component. Then we went ahead and removed the tibial component. Again, we used the Ultra-Drive to remove the tibial component after the polyethylene was removed. I felt we could make a cut at the level of the tibial component placement and go ahead with a primary total knee replacement baseplate. The membrane underlying the implant was sent for frozen section which came back as no active inflammation. Attention was first taken to the femur. An intramedullary drill hole was made into the canal. We cut the femur at 6 degrees valgus. They were skim cut first and aligned the cutting block with the epicondylar axis. We used the 4-1 cutting block for size 4 femur, made anterior and posterior chamfer cuts. Then the tibia was subluxed and we used an external tibial cutting guide to make a perpendicular cut to long axis of the tibia, placing some slope posteriorly on the implant making the cut just at the deficient area medially where the prior implant was placed. Then the patella was addressed. Made a skim cut over the patella to make a flat surface for placement of the patella button and all the old cement was removed from the previous drill holes from the prior component and then we sized the patella for a 38 component and made 3 new drill holes for the new component. I used the [employer] [facility] primary total knee replacement components for the revision. The notch cut was then made for the femoral component and we placed the 4 femoral trial in position, placed the 4 tibial trial externally rotated in line with the tibial tubercle which was pinned in position. Punch for the stem was used. Then, we did trial reductions with high flex polyethylene insert and 18 insert gave balanced ligaments, full range of motion, patella tracked centrally. The trials were removed. The knee was copiously irrigated with post-lavage antibiotic solution and bacitracin. The Orthomix was injected per protocol. The final components were cemented with antibiotic cement. Final components were the size 4 Oxinium posterior stabilized Legion primary left femoral component, the 4 primary tibial baseplate, the 18 mm high flex posterior stabilized poly insert and the 38 dome patella. While the cement cured, we used a Betadine soap per protocol. Then after the cement cured, the knee was copiously irrigated with antibiotic solution and bacitracin. Two drains were brought out laterally. Quadriceps and medial retinaculum were closed with [id number] #1 Vicryl sutures. The knee was taken through full range of motion and appeared secure. Subcutaneous tissues were closed with interrupted 2-0 Vicryl, skin closed with shruthi. Sterile dressings were applied. The patient tolerated the procedure well. DALTON Epperson was my first aid teacher. He functioned as first aid teacher and he assisted in soft tissue retraction for management, assisted in the closure and will participate in postoperative care of the patient. I attest to the content of the Intraoperative Record and any orders documented therein. Any exception s are noted below.
== END 2017-10-07 11:39 | disposition home or self-care (01) | DRG 468 ==
LOC: C.ACU 06:17 → C.3E 07:06 → ENRESERV 12:13
PROVIDERS: ADMIT Orthopaedic Surgery Sports Medicine; ATTEND Orthopaedic Surgery Sports Medicine
PROC: 0SRD0J9 Replacement of Left Knee Joint with Synthetic Substitute, Cemented, Open Approach (ICD-10-PCS; principal; 2017-10-05 08:45)
PROC: 0SPD0JZ Removal of Synthetic Substitute from Left Knee Joint, Open Approach (ICD-10-PCS; principal; 2017-10-05 08:45)
DX: T84.033A Mechanical loosening of internal left knee prosthetic joint, initial encounter (principal); M17.12 Unilateral primary osteoarthritis, left knee; I10 Essential (primary) hypertension; K21.9 Gastro-esophageal reflux disease without esophagitis; E03.9 Hypothyroidism, unspecified; L71.9 Rosacea, unspecified; Z79.899 Other long term (current) drug therapy; Z79.82 Long term (current) use of aspirin; Z79.2 Long term (current) use of antibiotics; Z96.653 Presence of artificial knee joint, bilateral; Z85.828 Personal history of other malignant neoplasm of skin; Y83.1 Surgical operation with implant of artificial internal device as the cause of abnormal reaction of the patient, or of later complication, without mention of misadventure at the time of the procedure